=== PATIENT | male | born 1975 | race Caucasian/White ===

== ENCOUNTER 2016-11-27 08:41 | Emergency (ER) | payer SELFPAY ==
[~2016-11-27] VITALS: Ht 165.1 cm; Wt 95.3 kg
--- NOTE | 2016-11-27 08:47 | NUR ---
Patient arrived in full C-Spine precautions with hard C-collar and backboard in place. ED MD notified.
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
[2016-11-27] MEDS ORDERED: IBUPROFEN 600 MG TABLET PO ONE ×2 (08:48→09:00)
[2016-11-27] MEDS ORDERED: TDAP [DIPH/PERTUSSIS/TET] 0.5 ML VIAL IM ONE ×2 (08:49→09:00)
--- NOTE | 2016-11-27 08:49 | NUR ---
C-spine cleared by ER MD. backboard removed. Patient able to move all extremities before and after backboard removal.
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
[2016-11-27 10:30] VITALS: BP 130/90
--- NOTE | 2016-11-27 10:30 | NUR ---
Patient discharged to home in stable condition. Written and verbal after care instructions given. Patient verbalizes understanding of instruction.
== END 2016-11-27 10:31 | disposition home or self-care (01) ==
LOC: ER 08:43
DX: S01.81XA Laceration without foreign body of other part of head, initial encounter (principal); S09.90XA Unspecified injury of head, initial encounter; S19.9XXA Unspecified injury of neck, initial encounter; V43.52XA Car driver injured in collision with other type car in traffic accident, initial encounter; Y93.89 Activity, other specified; Y92.413 State road as the place of occurrence of the external cause; Y99.8 Other external cause status
CPT/HCPCS: 12011; 72040; 73000; 90471; 90715; 99284; A4606; A6402; A6403; Z7610